=== PATIENT | male | born 1950 | race Caucasian/White ===

== ENCOUNTER 2020-03-05 12:10 | IRF | payer BC, MEDICARE, SELFPAY ==
--- NOTE | 2020-03-05 12:40 | ADMGEN ---
This patient, Bucky Forte, was admitted to [facility] Room 225-01. Patient/family oriented to hospital policies and general routines including ID bracelet, bed and alarms, visiting hours, pain management, procedures, bathroom and other care routines, personal items, smoking policy, room service/diet, and visiting hours. Information on how to activate the Rapid Response Team has been discussed. Patient/Family are encouraged to report perceived risks to care and to ask questions if they do not understand what they are told or what they should do.
[2020-03-05 12:41] VITALS: BP 135/74; PULSE 89; RESP 20; TEMP 36.6; O2SAT 98
[2020-03-05 12:42] VITALS: BMI 40.6
[2020-03-05 12:44] VITALS: BMI 40.6
--- NOTE | 2020-03-05 13:49 | WPDREHABHP ---
H&P: HPI History of Present Illness Date/Time: 03/05/20 13:49 Chief complaint: T10-L1 PSF,wound dehis Narrative: Bucky Forte is a 69 year old male HISTORY OF PRESENT ILLNESS: The patient's primary rehab impairment category is orthopedic/other The etiologic diagnosis is T11-T12 fracture I saw this patient [id number] on on March 05, 2020 at 1:00 p.m. The patient is a 69 years old right-handed male with a past medical history of diabetes mellitus type 2, hypertension, and factor 5 leiden who recently presented after a fall with a T11 and T12 fracture, status post T10-L1 PSF by Dr. Garcia on December 17, 2019. The patient is on Coumadin at home. He had a mechanical fall and hit his back leading to superficial dehiscence along the midportion of the incision, he presented to [facility] on February 26, 2020 and was transferred to [facility] the same day for evaluation by his neurosurgeon. Drainage was noted to the incision. Neurosurgery examined patient and with no new recommendation. Wound Care was consulted and clean the wound and prevena wound VAC was applied. The patient has experienced acute blood-loss anemia, acute posttraumatic pain, and decreased mobility,. He will require monitoring of labs, wound care management, physical and occupational therapy. The patient will continue on Coumadin as he has for the past 15 years.COVID: The patient has not traveled outside the [place] or head contact with someone who is ill status travel outside the [place] in the past 21 days. The patient has not traveled to an area of the [place] that is experiencing known transmission of the Coronavirus and has not had closed personal contact with anyone that has. Patient does not have a fever patient is not experiencing lower respiratory illness symptoms. Therapy was initiated at the acute care facility and the patient transferred to us from [facility] on March 05, 2020 FALLS OR SURGERIES: The patient has had ] major surgeries in the 100 days prior to admission.( T10 -L1 PSF by Dr. gutierrez on December 17, 2019. The patient has had 2 or more falls with injury in the past 6 months. PAST MEDICAL HISTORY: Close fracture T12, closed fracture T11, diabetes mellitus, factor 5 Leiden mutation, and hypertension. PAST SURGICAL HISTORY: Upper endoscopy., IVC filter placement., Lumbar spine fusion. SOCIAL HISTORY: The patient lives independently in a 3 story home with 11 is stairs in between each level, there are rales on both sides. Following the patient's recent surgery he has been staying at a [facility] in [place], [place]. he is able to return there following rehab if necessary but prefers to return to his own home. 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 He was able to perform ADLs independently previously. He does not have support in his own home following rehabilitation and would like to be completely independent so that he may return home. The patient reported that he completed rehab at [facility] after his spinal surgery. He stated that while in rehab he was able to do stairs without the LLE weakness causing a problem, but will need home after rehab he began to have difficulty once again. He feels that if he works on 11 stairs, rest, 11 is stairs, rest, and 11 is stairs and rest consistently throughout rehab he will be able to ascertain if it is the number of his stairs causing the problem or if he just did not fully get all of his strength back the patient was never a smoker never a drinker never drug abuser. FAMILY HISTORY: None on file PRIOR LEVEL OF FUNCTION: Eating was [INDEPENDENT] Oral Care was [INDEPENDENT] Toileting Hygiene was [INDEPENDENT] Shower/Bathing was [INDEPENDENT] Upper Body Dressing was [INDEPENDENT] Lower Body Dressing was [INDEPENDENT] D
[2020-03-05 14:00] VITALS: BP 108/63; PULSE 79; RESP 20; TEMP 36.6; O2SAT 100
[2020-03-05 14:57] LABS: Prothrombin Time 23.2 Seconds (11.1-14.7)
[2020-03-05] MEDS: CYCLOBENZAPRINE HCL 5 MG TABLET PO ×2 (16:23→23:01)
[2020-03-05] MEDS: WARFARIN (*PBKC) 10 MG TABLET PO (16:23)
[2020-03-05 22:30] VITALS: BP 140/65; PULSE 83; RESP 20; TEMP 36.8; O2SAT 96
[2020-03-05] MEDS: SIMVASTATIN 20 MG TABLET PO (22:33)
[2020-03-05] MEDS: RANOLAZINE 500 MG TAB.ER.12H PO (22:33)
[2020-03-05] MEDS: PANTOPRAZOLE 40 MG TABLET PO (22:33)
[2020-03-05] MEDS: PREGABALIN (*CRX) 75 MG CAPSULE 150 MG PO (22:35)
[2020-03-06 04:53] LABS: Basophils Percent Auto 0.2 % (0.2-1.2); Eosinophils Absolute Auto 0.2 K/mm3 (0-0.3); Eosinophils Percent Auto 3.3 % (0-4.4); Hematocrit 31.6 % (42.0-52.0); Hemoglobin 9.8 g/dL (14.0-18.0); Immature Granulocyte Absolute 0.02 K/mm3 (0.00-0.031); Immature Granulocyte Percent A 0.4 % (0-0.5); Lymphocytes Absolute Auto 1.47 K/mm3 (0.9-3.2); Lymphocytes Percent Auto 28.1 % (18.3-44.2); Mean Corpuscular Hemoglobin 26.8 pg (26-34); Mean Corpuscular Volume 86.3 fl (80-100); Monocytes Absolute Auto 0.4 K/mm3 (0.1-0.6); Monocytes Percent Auto 7.8 % (2.6-8.5); Neutrophils Absolute Auto 3.2 K/mm3 (1.3-6.7); Neutrophils Percent Auto 60.2 % (45.5-73.1); Platelet Count Result 271 k/mm3 (150-375); Red Blood Count 3.66 M/mm3 (4.6-6.20); White Blood Count 5.2 K/mm3 (4.5-10.0)
[2020-03-06 05:06] LABS: Prothrombin Time 23.1 Seconds (11.1-14.7)
[2020-03-06 05:09] LABS: Anion Gap 5 mmol/L (8-16); Blood Urea Nitrogen 22 mg/dL (9-20); Calcium 8.9 mg/dL (8.4-10.2); Carbon Dioxide 28 mmol/L (22-30); Chloride 107 mmol/L (98-107); Estimated CRCL calculation 74 ml/min; Estimated Glomerular Filt Rate > 60; Glucose 95 mg/dL (75-110); Potassium 4.4 mmol/L (3.4-5.0); Sodium 140 mmol/L (137-145)
[2020-03-06 06:05] VITALS: BP 111/60; PULSE 72; RESP 20; TEMP 36.1; O2SAT 100
[2020-03-06] MEDS: CYCLOBENZAPRINE HCL 5 MG TABLET PO ×3 (06:08→22:14)
[2020-03-06] MEDS: RANOLAZINE 500 MG TAB.ER.12H PO ×2 (09:03→21:01)
[2020-03-06] MEDS: COLCHICINE 0.6 MG TABLET PO (09:03)
[2020-03-06] MEDS: polyethylene glycoL 3350 17 GM POWD.PACK PO (09:03)
[2020-03-06] MEDS: ASPIRIN 81 MG CHEWABLE TABLET PO (09:03)
[2020-03-06] MEDS: PANTOPRAZOLE 40 MG TABLET PO ×2 (09:03→21:00)
[2020-03-06] MEDS: PREGABALIN (*CRX) 75 MG CAPSULE 150 MG PO ×2 (09:05→21:00)
--- NOTE | 2020-03-06 12:22 | WPDNEUROPN ---
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 Status: Acute (3) Factor 5 Leiden mutation, heterozygous: Code(s): D68.51 - Activated protein C resistance Status: Acute (4) Hypertension: Code(s): I10 - Essential (primary) hypertension Status: Acute (5) Wound dehiscence: Code(s): T81.30XA - Disruption of wound, unspecified, initial encounter Status: Acute (6) Other fracture of t11-T12 vertebra, sequela: Code(s): S22.088S - Other fracture of T11-T12 vertebra, sequela Status: Acute Additional Plan stable continue the treatment as such Review of Systems Review of Systems: All systems reviewed & are unremarkable except as noted in HPI and below Exam Narrative: Exam Narrative: awake alert cooperative has no specific complaints in no obvious distress his speech nor dysphasic not dysarthric heart regular lungs clear abdomen is soft protuberant neuro examination unchanged Objective Data Vital Signs Vital Signs: Vital Signs - 24 hr 03/05/20 12:41 03/05/20 14:00 03/05/20 22:30 Temperature 36.6 C 36.6 C 36.8 C Pulse Rate 89 79 83 Respiratory Rate 20 20 20 Blood Pressure 135/74 108/63 140/65 Pulse Oximetry 98 100 96 03/06/20 06:05 Temperature 36.1 C L Pulse Rate 72 Respiratory Rate 20 Blood Pressure 111/60 Pulse Oximetry 100 Intake/Output Intake/Output: Intake & Output 03/03/20 03/04/20 03/05/20 03/06/20 23:59 23:59 23:59 23:59 Intake Total 240 240 Balance 240 240 Meds/Results Medications: Active Medications Generic Name Dose Route Start Last Admin Trade Name Freq PRN Reason Stop Dose Admin Acetaminophen 650 mg 03/05/20 13:22 Acetaminophen 325 Mg Tablet PO Q4H PRN Headache Aspirin 81 mg 03/06/20 09:00 03/06/20 09:03 Aspirin 81 Mg Chewable Tablet PO 81 mg DAILY RENU Administration Bupropion HCl 150 mg 03/05/20 21:00 03/06/20 09:03 Bupropion Hcl Sr (12hr) 150 Mg Tab PO 150 mg Q12HR RENU Administration Colchicine 0.6 mg 03/06/20 09:00 03/06/20 09:03 Colchicine 0.6 Mg Tablet PO 0.6 mg DAILY RENU Administration Cyclobenzaprine HCl 5 mg 03/05/20 14:00 03/06/20 06:08 Cyclobenzaprine Hcl 5 Mg Tablet PO 5 mg Q8H RENU Administration Diphenoxylate HCl/Atropine 1 tablet 03/05/20 13:22 Diphenoxylate/Atropine (*Crx) 2.5 Mg Tablet PO QID PRN Diarrhea Pantoprazole Sodium 40 mg 03/05/20 21:00 03/06/20 09:03 Pantoprazole 40 Mg Tablet PO 40 mg Q12H RENU Administration Polyethylene Glycol 17 gm 03/06/20 09:00 03/06/20 09:03 Polyethylene Glycol 3350 17 Gm Powd.Pack PO 17 gm DAILY RENU Administration Pregabalin 150 mg 03/05/20 21:00 03/06/20 09:05 Pregabalin (*Crx) 75 Mg Capsule PO 150 mg Q12H RENU Administration Ranolazine 500 mg 03/05/20 21:00 03/06/20 09:03 Ranolazine 500 Mg Tab.Er.12h PO 500 mg Q12H RENU Administration Simvastatin 20 mg 03/05/20 21:00 03/05/20 22:33 Simvastatin 20 Mg Tablet PO 20 mg HS RENU Administration Warfarin Sodium 10 mg 03/05/20 17:00 03/05/20 16:23 Warfarin (*Pbkc) 10 Mg Tablet PO 10 mg DAILY@1700 RENU Administration Labs Labs: Laboratory Results - last 24 hr 03/05/20 03/06/20 03/06/20 14:25 04:24 04:24 WBC 5.2 RBC 3.66 L Hgb 9.8 L Hct 31.6 L MCV 86.3 MCH 26.8 MCHC 31.0 L RDW 15.0 H Plt Count 271 MPV 9.0 Immature Gran % (Auto) 0.4 Neut % (Auto) 60.2 Lymph % (Auto) 28.1 [place] % (Auto) 7.8 Eos % (Auto) 3.3 Baso % (Auto) 0.2 Lymph # (Auto) 1.47 [place] # (Auto) 0.4 Eos # (Auto) 0.2 Baso # (Auto) 0.0 Abs Immat Gran (auto) 0.02 Absolute Neuts (auto) 3.2 Absolute Nucleated RBC 0.0
[2020-03-06 14:00] VITALS: BP 101/57; PULSE 85; RESP 22; TEMP 36.5; O2SAT 100
[2020-03-06] MEDS: WARFARIN (*PBKC) 10 MG TABLET PO (18:22)
[2020-03-06 19:43] VITALS: BP 115/56; PULSE 89; RESP 20; TEMP 36.5; O2SAT 100
[2020-03-06] MEDS: SIMVASTATIN 20 MG TABLET PO (21:01)
[2020-03-07 06:00] VITALS: BP 111/64; PULSE 86; RESP 20; TEMP 35.9; O2SAT 100
[2020-03-07] MEDS: CYCLOBENZAPRINE HCL 5 MG TABLET PO ×3 (06:06→21:20)
[2020-03-07] MEDS: PANTOPRAZOLE 40 MG TABLET PO ×2 (09:05→21:19)
[2020-03-07] MEDS: COLCHICINE 0.6 MG TABLET PO (09:05)
[2020-03-07] MEDS: polyethylene glycoL 3350 17 GM POWD.PACK PO (09:05)
[2020-03-07] MEDS: RANOLAZINE 500 MG TAB.ER.12H PO ×2 (09:06→21:19)
[2020-03-07] MEDS: ASPIRIN 81 MG CHEWABLE TABLET PO (09:06)
[2020-03-07] MEDS: PREGABALIN (*CRX) 75 MG CAPSULE 150 MG PO ×2 (09:06→21:21)
[2020-03-07 14:00] VITALS: BP 109/60; PULSE 81; RESP 20; TEMP 36.1; O2SAT 100
[2020-03-07] MEDS: WARFARIN (*PBKC) 10 MG TABLET PO (17:25)
[2020-03-07 20:00] VITALS: PULSE 82; RESP 20; O2SAT 92
[2020-03-07] MEDS: SIMVASTATIN 20 MG TABLET PO (21:19)
[2020-03-07 22:00] VITALS: BP 133/70; PULSE 82; RESP 20; TEMP 36.2; O2SAT 92
[2020-03-08 05:55] VITALS: BP 125/72; PULSE 77; RESP 20; TEMP 36.6; O2SAT 99
[2020-03-08] MEDS: CYCLOBENZAPRINE HCL 5 MG TABLET PO ×3 (06:59→21:54)
--- NOTE | 2020-03-08 09:00 | RPD ---
INDIVIDUALIZED PLAN OF CARE FOR Bucky Forte Brief Synthesis of Pre-Admission Screen, Post-Admission Evaluation and Therapy Evaluations: The patient presents to rehab with T11-T12 fracture. Comorbidities include status post mechanical fall and wound dehiscence of a posterior spinal fusion surgical incision, diabetes mellitus, hypertension Factor V Leiden mutation, acute pain, and acute blood loss anemia. The complexity of the patient's medical management, nursing, and therapy needs require an inpatient rehab hospital stay with a physician-led interdisciplinary team approach. The patient?s needs will be best met in an intensive program vs. at a lower level of care. The patient requires physician services for medical oversight, management of surgical wound dehiscence in setting of present comorbidities, and pain management. The patient requires nursing services for anticoagulation therapy, diabetes training, DVT prophylactics, infection protection, medication management and education, pressure relief, and wound care. Deficits include:ADLs, Balance, Endurance, Family Training/Education, Mobility, Pain Management, ROM, Safety, Strength, and Transfers. Party Plan Demonstrator/Case Management for: Discharge Planning and Patient/Family Counseling Physical Therapy: 5 days per week for 90 minutes. Treatments may include: Therapeutic Exercise, Gait Training, Neuromuscular Re-education, Transfer Training, Community Reintegration, Bed Mobility, Patient/Family Education, Wheelchair Mobility Group Therapy/Concurrent Therapy Rationales: -Improve attention span during functional activities in a distracted environment. -Enhance problem solving and/or adequate judgment skills during functional activities in a distracted environment. -Promote increased safety awareness in a distracted environment to reduce fall risk with functional tasks, transfers, and ambulation to allow a more safe, self-sufficient return to the home environment. -Improve dynamic balance skills to promote safety and independence with functional activities in a distracted environment for maximum gain. Occupational Therapy: 5 days per week for 90 minutes. Treatments may include: Therapeutic Exercise, Therapeutic Activity, Cognitive Training, Self-Care Transfer Training, Community Reintegration, Home Management, Patient/Family Education, Wheelchair Mobility Training, Energy Conservation Training Group Therapy/Concurrent Therapy Rationales: -Allow therapist to observe and teach generalization and carry-over of skills learned in individual therapy. -Enhance problem solving and sequencing skills during therapeutic activities in a distracted environment. -Promote increased safety awareness in a realistic setting to reduce fall risk with functional tasks due to visual and verbal distractions. -Increase functional level with ADLs, ADL transfers and use of adaptive equipment through therapeutic activities with others while promoting safety to allow a more safe, self-sufficient return home. Medical Prognosis: Good Anticipated Length of Stay: 10 days Rehab Goals: Eating Goal: 06-Independent Oral Hygiene Goal: 06-Independent Toileting Hygiene Goal: 06-Independent Shower/Bathe Self Goal: 06-Independent Upper Body Dressing Goal: 06-Independent Lower Body Dressing Goal: 06-Independent Putting On/Taking Off Footwear Goal: 06-Independent Rolling Left and Right Goal: 06-Independent Sit to Lying Goal: 06-Independent Lying to Sitting on Side of Bed Goal: 06-Independent Sit to Stand Goal: 06-Independent Chair/Dyc-cl-Segtu Transfer Goal: 06-Independent Toilet Transfer Goal: 06-Independent Car Transfer Goal: 06-Independent Walk 10' Goal: 06-Independent Walk 50' with Two Turns Goal: 06-Independent Walk 150' Goal: 06-Independent Walk 10' on Uneven Surface Goal: 06-Independent 1 Step (Curb) Goal: 06-Independent 4 Steps Goal: 06-Independent 12 Steps Goal Score: 06-Independent Picking Up Object Goal: 06-Independent Wheel 50'
[2020-03-08] MEDS: PANTOPRAZOLE 40 MG TABLET PO ×2 (09:18→21:50)
[2020-03-08] MEDS: polyethylene glycoL 3350 17 GM POWD.PACK PO (09:18)
[2020-03-08] MEDS: COLCHICINE 0.6 MG TABLET PO (09:18)
[2020-03-08] MEDS: ASPIRIN 81 MG CHEWABLE TABLET PO (09:18)
[2020-03-08] MEDS: RANOLAZINE 500 MG TAB.ER.12H PO ×2 (09:19→21:53)
[2020-03-08] MEDS: PREGABALIN (*CRX) 75 MG CAPSULE 150 MG PO ×2 (09:22→21:53)
--- NOTE | 2020-03-08 10:53 | WPDNEUROPN ---
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 Status: Acute (3) Factor 5 Leiden mutation, heterozygous: Code(s): D68.51 - Activated protein C resistance Status: Acute (4) Hypertension: Code(s): I10 - Essential (primary) hypertension Status: Acute (5) Wound dehiscence: Code(s): T81.30XA - Disruption of wound, unspecified, initial encounter Status: Acute (6) Other fracture of t11-T12 vertebra, sequela: Code(s): S22.088S - Other fracture of T11-T12 vertebra, sequela Status: Acute Additional Plan stable continue the treatment as such Review of Systems Review of Systems: All systems reviewed & are unremarkable except as noted in HPI and below Exam Narrative: Exam Narrative: remains awake alert cooperative has no specific complaints continues on anticoagulation therapy heart regular lungs clear abdomen is soft neuro unchanged Objective Data Vital Signs Vital Signs: Vital Signs - 24 hr 03/07/20 14:00 03/07/20 20:00 03/07/20 22:00 Temperature 36.1 C L 36.2 C L Pulse Rate 81 82 82 Respiratory Rate 20 20 20 Blood Pressure 109/60 133/70 Pulse Oximetry 100 92 92 03/08/20 05:55 Temperature 36.6 C Pulse Rate 77 Respiratory Rate 20 Blood Pressure 125/72 Pulse Oximetry 99 Intake/Output Intake/Output: Intake & Output 03/05/20 03/06/20 03/07/20 03/08/20 23:59 23:59 23:59 23:59 Intake Total 249 157 3394 480 Balance 489 671 2487 480 Meds/Results Medications: Active Medications Generic Name Dose Route Start Last Admin Trade Name Freq PRN Reason Stop Dose Admin Acetaminophen 650 mg 03/05/20 13:22 Acetaminophen 325 Mg Tablet PO Q4H PRN Headache Aspirin 81 mg 03/06/20 09:00 03/08/20 09:18 Aspirin 81 Mg Chewable Tablet PO 81 mg DAILY RENU Administration Bupropion HCl 150 mg 03/05/20 21:00 03/08/20 09:18 Bupropion Hcl Sr (12hr) 150 Mg Tab PO 150 mg Q12HR RENU Administration Colchicine 0.6 mg 03/06/20 09:00 03/08/20 09:18 Colchicine 0.6 Mg Tablet PO 0.6 mg DAILY RENU Administration Cyclobenzaprine HCl 5 mg 03/05/20 14:00 03/08/20 06:59 Cyclobenzaprine Hcl 5 Mg Tablet PO 5 mg Q8H RENU Administration Diphenoxylate HCl/Atropine 1 tablet 03/05/20 13:22 Diphenoxylate/Atropine (*Crx) 2.5 Mg Tablet PO QID PRN Diarrhea Pantoprazole Sodium 40 mg 03/05/20 21:00 03/08/20 09:18 Pantoprazole 40 Mg Tablet PO 40 mg Q12H RENU Administration Polyethylene Glycol 17 gm 03/06/20 09:00 03/08/20 09:18 Polyethylene Glycol 3350 17 Gm Powd.Pack PO 17 gm DAILY RENU Administration Pregabalin 150 mg 03/05/20 21:00 03/08/20 09:22 Pregabalin (*Crx) 75 Mg Capsule PO 150 mg Q12H RENU Administration Ranolazine 500 mg 03/05/20 21:00 03/08/20 09:19 Ranolazine 500 Mg Tab.Er.12h PO 500 mg Q12H RENU Administration Simvastatin 20 mg 03/05/20 21:00 03/07/20 21:19 Simvastatin 20 Mg Tablet PO 20 mg HS RENU Administration Warfarin Sodium 10 mg 03/05/20 17:00 03/07/20 17:25 Warfarin (*Pbkc) 10 Mg Tablet PO 10 mg DAILY@1700 RENU Administration
[2020-03-08 11:57] LABS: INR 2.2; Prothrombin Time 24.6 Seconds (11.1-14.7)
[2020-03-08 13:19] VITALS: BMI 40.6
--- NOTE | 2020-03-08 13:32 | PCPTNOTE ---
Bucky Forte was evaluated for a wheeled walker on 03/08/2020 by this physical therapist. The wheeled walker will resolve patient's mobility limitations and will be used for ADL's within the home. The patient can safely use the wheeled walker. ?The wheeled walker will resolve the patient?s mobility deficits, including decreased balance, endurance and bilateral lower extremity strength.
[2020-03-08 14:00] VITALS: BP 126/74; PULSE 89; RESP 20; TEMP 36.3; O2SAT 100
[2020-03-08] MEDS: WARFARIN (*PBKC) 10 MG TABLET PO (17:26)
[2020-03-08] MEDS: SIMVASTATIN 20 MG TABLET PO (21:54)
[2020-03-08 22:00] VITALS: BP 104/68; PULSE 80; RESP 18; TEMP 36.2; O2SAT 98
[2020-03-09] MEDS: CYCLOBENZAPRINE HCL 5 MG TABLET PO ×3 (05:23→22:05)
[2020-03-09 05:30] VITALS: BP 113/64; PULSE 66; RESP 16; TEMP 36.4; O2SAT 100
--- NOTE | 2020-03-09 09:59 | WPDNEURORHBP ---
Subjective Date/time seen: 03/09/20 09:59 69 years old right-handed male with T11-T12 fracture in addition to the ongoing diagnosis of diabetes mellitus, hypertension, and factor 5 laden deficiency who has undergone surgery for the T11 and T12 fracture but at present also on Coumadin wound, dressing will be changed on , he will require occupational therapy as an outpatient along with the physical therapy and also bathing aide in addition to the follow-up appointment with the surgeon Review of Systems Review of Systems: All systems reviewed & are unremarkable except as noted in HPI and below Functional Status Ambulation Ability Ability to Ambulate 10 Feet: Minimum Assistance X 1 Ability to Ambulate 50 Feet With 2 Turns: Minimum Assistance X 1 Ambulation Assistive Devices: Walker, Wheeled Transfers Ability Ability to Transfer In/Out of Chair: Moderate Assistance X 1 Exam Narrative: Exam Narrative: on examination he is awake alert cooperative in no obvious acute distress his speech nor dysphasic no dysarthric nor dysphonic heart regular with no murmur lungs clear to auscultation no rhonchi or crepitation abdomen is soft neurological examination revealed him to have no change in her neurological findings Objective Data Vital Signs Vital Signs: Vital Signs - 24 hr 03/08/20 14:00 03/08/20 22:00 03/09/20 05:30 Temperature 36.3 C L 36.2 C L 36.4 C L Pulse Rate 89 80 66 Respiratory Rate 20 18 16 Blood Pressure 126/74 104/68 113/64 Pulse Oximetry 100 98 100 Intake/Output Intake/Output: Intake & Output 03/06/20 03/07/20 03/08/20 03/09/20 23:59 23:59 23:59 23:59 Intake Total 960 1680 1200 480 Balance 960 1680 1200 480 Meds/Results Medications: Active Medications Generic Name Dose Route Start Last Admin Trade Name Freq PRN Reason Stop Dose Admin Acetaminophen 650 mg 03/05/20 13:22 Acetaminophen 325 Mg Tablet PO Q4H PRN Headache Aspirin 81 mg 03/06/20 09:00 03/08/20 09:18 Aspirin 81 Mg Chewable Tablet PO 81 mg DAILY RENU Administration Bupropion HCl 150 mg 03/05/20 21:00 03/08/20 21:51 Bupropion Hcl Sr (12hr) 150 Mg Tab PO 150 mg Q12HR RENU Administration Colchicine 0.6 mg 03/06/20 09:00 03/08/20 09:18 Colchicine 0.6 Mg Tablet PO 0.6 mg DAILY RENU Administration Cyclobenzaprine HCl 5 mg 03/05/20 14:00 03/09/20 05:23 Cyclobenzaprine Hcl 5 Mg Tablet PO 5 mg Q8H RENU Administration Diphenoxylate HCl/Atropine 1 tablet 03/05/20 13:22 Diphenoxylate/Atropine (*Crx) 2.5 Mg Tablet PO QID PRN Diarrhea Pantoprazole Sodium 40 mg 03/05/20 21:00 03/08/20 21:50 Pantoprazole 40 Mg Tablet PO 40 mg Q12H RENU Administration Polyethylene Glycol 17 gm 03/06/20 09:00 03/08/20 09:18 Polyethylene Glycol 3350 17 Gm Powd.Pack PO 17 gm DAILY RENU Administration Pregabalin 150 mg 03/05/20 21:00 03/08/20 21:53 Pregabalin (*Crx) 75 Mg Capsule PO 150 mg Q12H RENU Administration Ranolazine 500 mg 03/05/20 21:00 03/08/20 21:53 Ranolazine 500 Mg Tab.Er.12h PO 500 mg Q12H RENU Administration Simvastatin 20 mg 03/05/20 21:00 03/08/20 21:54 Simvastatin 20 Mg Tablet PO 20 mg HS RENU Administration Warfarin Sodium 10 mg 03/05/20 17:00 03/08/20 17:26 Warfarin (*Pbkc) 10 Mg Tablet PO 10 mg DAILY@1700 RENU Administration Labs Labs: Laboratory Results - last 24 hr 03/08/20 11:23 PT 24.6 H INR 2.2 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
[2020-03-09 10:17] LABS: INR 2.3; Prothrombin Time 25.7 Seconds (11.1-14.7)
[2020-03-09] MEDS: COLCHICINE 0.6 MG TABLET PO (10:24)
[2020-03-09] MEDS: RANOLAZINE 500 MG TAB.ER.12H PO ×2 (10:24→20:49)
[2020-03-09] MEDS: PANTOPRAZOLE 40 MG TABLET PO ×2 (10:24→20:49)
[2020-03-09] MEDS: polyethylene glycoL 3350 17 GM POWD.PACK PO (10:24)
[2020-03-09] MEDS: PREGABALIN (*CRX) 75 MG CAPSULE 150 MG PO ×2 (10:24→20:49)
[2020-03-09] MEDS: ASPIRIN 81 MG CHEWABLE TABLET PO (10:24)
[2020-03-09 14:00] VITALS: BP 102/66; PULSE 83; RESP 18; TEMP 36.4; O2SAT 100
[2020-03-09] MEDS: WARFARIN (*PBKC) 4 MG TABLET 8 MG PO (18:10)
[2020-03-09 20:03] VITALS: BP 130/72; PULSE 78; RESP 20; TEMP 36.3; O2SAT 100
[2020-03-09] MEDS: SIMVASTATIN 20 MG TABLET PO (20:49)
[2020-03-10 05:33] LABS: INR 2.5; Prothrombin Time 27.4 Seconds (11.1-14.7)
[2020-03-10 05:44] VITALS: BP 135/78; PULSE 71; RESP 20; TEMP 35.8; O2SAT 95
[2020-03-10] MEDS: CYCLOBENZAPRINE HCL 5 MG TABLET PO ×3 (06:15→22:07)
[2020-03-10] MEDS: RANOLAZINE 500 MG TAB.ER.12H PO ×2 (08:26→20:21)
[2020-03-10] MEDS: COLCHICINE 0.6 MG TABLET PO (08:26)
[2020-03-10] MEDS: PANTOPRAZOLE 40 MG TABLET PO ×2 (08:27→20:20)
[2020-03-10] MEDS: PREGABALIN (*CRX) 75 MG CAPSULE 150 MG PO ×2 (08:27→20:21)
[2020-03-10] MEDS: ASPIRIN 81 MG CHEWABLE TABLET PO (08:27)
[2020-03-10 14:00] VITALS: BP 104/56; PULSE 80; RESP 20; TEMP 36.4; O2SAT 99
[2020-03-10] MEDS: WARFARIN (*PBKC) 3 MG TABLET 6 MG PO (17:20)
[2020-03-10 20:17] VITALS: BP 117/71; PULSE 84; RESP 20; TEMP 36.5; O2SAT 98
[2020-03-10] MEDS: SIMVASTATIN 20 MG TABLET PO (20:22)
[2020-03-11 05:26] LABS: INR 2.3; Prothrombin Time 25.5 Seconds (11.1-14.7)
[2020-03-11 05:50] VITALS: BP 108/56; PULSE 74; RESP 20; TEMP 36.5; O2SAT 100
[2020-03-11] MEDS: CYCLOBENZAPRINE HCL 5 MG TABLET PO ×3 (05:51→20:11)
[2020-03-11 08:00] VITALS: PULSE 74; RESP 20; O2SAT 100
[2020-03-11] MEDS: COLCHICINE 0.6 MG TABLET PO (09:39)
[2020-03-11] MEDS: ASPIRIN 81 MG CHEWABLE TABLET PO (09:39)
[2020-03-11] MEDS: PANTOPRAZOLE 40 MG TABLET PO ×2 (09:39→20:11)
[2020-03-11] MEDS: RANOLAZINE 500 MG TAB.ER.12H PO ×2 (09:40→20:11)
[2020-03-11] MEDS: polyethylene glycoL 3350 17 GM POWD.PACK PO (09:40)
[2020-03-11] MEDS: PREGABALIN (*CRX) 75 MG CAPSULE 150 MG PO ×2 (09:42→20:11)
[2020-03-11 14:00] VITALS: BP 114/66; PULSE 88; RESP 20; TEMP 36.8; O2SAT 100
[2020-03-11] MEDS: WARFARIN (*PBKC) 3 MG TABLET 6 MG PO (20:11)
[2020-03-11] MEDS: SIMVASTATIN 20 MG TABLET PO (20:11)
[2020-03-11] MEDS: ACETAMINOPHEN 325 MG TABLET 650 MG PO (20:12)
[2020-03-11 22:00] VITALS: BP 153/94; PULSE 70; RESP 20; TEMP 36.4; O2SAT 98
[2020-03-12 05:15] LABS: Prothrombin Time 23.1 Seconds (11.1-14.7)
[2020-03-12 06:00] VITALS: BP 118/65; PULSE 73; RESP 20; TEMP 36.6; O2SAT 100
[2020-03-12] MEDS: CYCLOBENZAPRINE HCL 5 MG TABLET PO ×3 (06:03→20:37)
[2020-03-12] MEDS: ASPIRIN 81 MG CHEWABLE TABLET PO (09:10)
[2020-03-12] MEDS: PANTOPRAZOLE 40 MG TABLET PO ×2 (09:11→20:39)
[2020-03-12] MEDS: PREGABALIN (*CRX) 75 MG CAPSULE 150 MG PO ×2 (09:11→20:37)
[2020-03-12] MEDS: COLCHICINE 0.6 MG TABLET PO (09:11)
[2020-03-12] MEDS: RANOLAZINE 500 MG TAB.ER.12H PO ×2 (09:12→20:38)
--- NOTE | 2020-03-12 10:25 | WPDNEURORHBP ---
Subjective Date/time seen: 03/12/20 10:25 69 years old right-handed male with T11 and T12 fracture in addition to the ongoing diagnosis of 1. Diabetes mellitus 2. Hypertension 3. Factor 5 laden deficiency and 4. Chronic anticoagulation therapy, his dressing will be changed on and also he will require occupational therapy as an outpatient along with physical therapy and bathing aide and follow-up appointment with the surgeon his INR is 2.0 yesterday he received Coumadin 6 mg we will increase to7mg today Review of Systems Review of Systems: All systems reviewed & are unremarkable except as noted in HPI and below Functional Status Ambulation Ability Ability to Ambulate 10 Feet: Standby Assistance Ability to Ambulate 50 Feet With 2 Turns: Contact Guard Ambulation Assistive Devices: Walker, Wheeled Transfers Ability Ability to Transfer In/Out of Chair: Standby Assistance Exam Narrative: Exam Narrative: examination revealed him to be awake alert cooperative in no obvious acute distress, speech nor dysphasic not dysarthric, neck supple, heart regular, lungs clear with no rhonchi or crepitation, abdomen soft nontender, neuro examination unchanged Objective Data Vital Signs Vital Signs: Vital Signs - 24 hr 03/11/20 14:00 03/11/20 22:00 03/12/20 06:00 Temperature 36.8 C 36.4 C L 36.6 C Pulse Rate 88 70 73 Respiratory Rate 20 20 20 Blood Pressure 114/66 153/94 H 118/65 Pulse Oximetry 100 98 100 Intake/Output Intake/Output: Intake & Output 03/09/20 03/10/20 03/11/20 03/12/20 23:59 23:59 23:59 23:59 Intake Total 1200 1560 720 240 Balance 1200 1560 720 240 Meds/Results Medications: Active Medications Generic Name Dose Route Start Last Admin Trade Name Freq PRN Reason Stop Dose Admin Acetaminophen 650 mg 03/05/20 13:22 03/11/20 20:12 Acetaminophen 325 Mg Tablet PO 650 mg Q4H PRN Administration Headache Aspirin 81 mg 03/06/20 09:00 03/12/20 09:10 Aspirin 81 Mg Chewable Tablet PO 81 mg DAILY RENU Administration Bupropion HCl 150 mg 03/05/20 21:00 03/12/20 09:11 Bupropion Hcl Sr (12hr) 150 Mg Tab PO 150 mg Q12HR RENU Administration Colchicine 0.6 mg 03/06/20 09:00 03/12/20 09:11 Colchicine 0.6 Mg Tablet PO 0.6 mg DAILY RENU Administration Cyclobenzaprine HCl 5 mg 03/05/20 14:00 03/12/20 06:03 Cyclobenzaprine Hcl 5 Mg Tablet PO 5 mg Q8H RENU Administration Diphenoxylate HCl/Atropine 1 tablet 03/05/20 13:22 Diphenoxylate/Atropine (*Crx) 2.5 Mg Tablet PO QID PRN Diarrhea Pantoprazole Sodium 40 mg 03/05/20 21:00 03/12/20 09:11 Pantoprazole 40 Mg Tablet PO 40 mg Q12H RENU Administration Polyethylene Glycol 17 gm 03/06/20 09:00 03/12/20 09:11 Polyethylene Glycol 3350 17 Gm Powd.Pack PO Not Given DAILY [facility] Pregabalin 150 mg 03/05/20 21:00 03/12/20 09:11 Pregabalin (*Crx) 75 Mg Capsule PO 150 mg Q12H RENU Administration Ranolazine 500 mg 03/05/20 21:00 03/12/20 09:12 Ranolazine 500 Mg Tab.Er.12h PO 500 mg Q12H RENU Administration Simvastatin 20 mg 03/05/20 21:00 03/11/20 20:11 Simvastatin 20 Mg Tablet PO 20 mg HS RENU Administration Warfarin Sodium 6 mg 03/10/20 17:00 03/11/20 20:11 Warfarin (*Pbkc) 3 Mg Tablet PO 6 mg DAILY@1700 RENU Administration Labs Labs: Laboratory Results - last 24 hr 03/12/20 04:36 PT 23.1 H INR 2.0 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
--- NOTE | 2020-03-12 10:36 | WPDNEURORHBP ---
Subjective Date/time seen: 03/12/20 10:36 XT 9 years old right-handed male with T11 and T12 fracture in addition to the ongoing diagnosis of 1. Diabetes mellitus 2. Hypertension 3. Factor 5 laden deficiency 4. Chronic anticoagulation therapy his dressing will be changed on 10 and he will require occupational therapy as an outpatient along with the physical therapy and bathing aide he has most recent INR is 2.0 his anticoagulation therapy will be adjusted accordingly that his Coumadin will be increased to7mg today Review of Systems Review of Systems: All systems reviewed & are unremarkable except as noted in HPI and below Functional Status Ambulation Ability Ability to Ambulate 10 Feet: Standby Assistance Ability to Ambulate 50 Feet With 2 Turns: Contact Guard Ambulation Assistive Devices: Walker, Wheeled Transfers Ability Ability to Transfer In/Out of Chair: Standby Assistance Exam Narrative: Exam Narrative: examination today he is awake alert cooperative in no obvious acute distress, speech nor dysphasic no dysarthric not dysphonic, neck is supple with no restriction of the range of motion, heart regular with no murmur, lungs clear with no rhonchi or crepitation, abdomen is soft nontender normal bowel sounds, and neurological examination is unchanged Objective Data Vital Signs Vital Signs: Vital Signs - 24 hr 03/11/20 14:00 03/11/20 22:00 03/12/20 06:00 Temperature 36.8 C 36.4 C L 36.6 C Pulse Rate 88 70 73 Respiratory Rate 20 20 20 Blood Pressure 114/66 153/94 H 118/65 Pulse Oximetry 100 98 100 Intake/Output Intake/Output: Intake & Output 03/09/20 03/10/20 03/11/20 03/12/20 23:59 23:59 23:59 23:59 Intake Total 1200 1560 720 240 Balance 1200 1560 720 240 Meds/Results Medications: Active Medications Generic Name Dose Route Start Last Admin Trade Name Freq PRN Reason Stop Dose Admin Acetaminophen 650 mg 03/05/20 13:22 03/11/20 20:12 Acetaminophen 325 Mg Tablet PO 650 mg Q4H PRN Administration Headache Aspirin 81 mg 03/06/20 09:00 03/12/20 09:10 Aspirin 81 Mg Chewable Tablet PO 81 mg DAILY RENU Administration Bupropion HCl 150 mg 03/05/20 21:00 03/12/20 09:11 Bupropion Hcl Sr (12hr) 150 Mg Tab PO 150 mg Q12HR RENU Administration Colchicine 0.6 mg 03/06/20 09:00 03/12/20 09:11 Colchicine 0.6 Mg Tablet PO 0.6 mg DAILY RENU Administration Cyclobenzaprine HCl 5 mg 03/05/20 14:00 03/12/20 06:03 Cyclobenzaprine Hcl 5 Mg Tablet PO 5 mg Q8H RENU Administration Diphenoxylate HCl/Atropine 1 tablet 03/05/20 13:22 Diphenoxylate/Atropine (*Crx) 2.5 Mg Tablet PO QID PRN Diarrhea Pantoprazole Sodium 40 mg 03/05/20 21:00 03/12/20 09:11 Pantoprazole 40 Mg Tablet PO 40 mg Q12H RENU Administration Polyethylene Glycol 17 gm 03/06/20 09:00 03/12/20 09:11 Polyethylene Glycol 3350 17 Gm Powd.Pack PO Not Given DAILY [facility] Pregabalin 150 mg 03/05/20 21:00 03/12/20 09:11 Pregabalin (*Crx) 75 Mg Capsule PO 150 mg Q12H RENU Administration Ranolazine 500 mg 03/05/20 21:00 03/12/20 09:12 Ranolazine 500 Mg Tab.Er.12h PO 500 mg Q12H RENU Administration Simvastatin 20 mg 03/05/20 21:00 03/11/20 20:11 Simvastatin 20 Mg Tablet PO 20 mg HS RENU Administration Warfarin Sodium 6 mg 03/10/20 17:00 03/11/20 20:11 Warfarin (*Pbkc) 3 Mg Tablet PO 6 mg DAILY@1700 RENU Administration Labs Labs: Laboratory Results - last 24 hr 03/12/20 04:36 PT 23.1 H INR 2.0 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
[2020-03-12 14:00] VITALS: BP 114/63; PULSE 76; RESP 20; TEMP 36.5; O2SAT 100
[2020-03-12] MEDS: WARFARIN (*PBKC) 3 MG TABLET 6 MG PO (17:42)
[2020-03-12 21:05] VITALS: BP 116/58; PULSE 83; RESP 20; TEMP 36.3; O2SAT 100
[2020-03-12] MEDS: SIMVASTATIN 20 MG TABLET PO (23:11)
[2020-03-13 05:29] VITALS: BP 107/66; PULSE 74; RESP 18; TEMP 36.4; O2SAT 100
[2020-03-13 05:30] LABS: Basophils Percent Auto 0.4 % (0.2-1.2); Eosinophils Absolute Auto 0.2 K/mm3 (0-0.3); Eosinophils Percent Auto 3.2 % (0-4.4); Hemoglobin 10.9 g/dL (14.0-18.0); Immature Granulocyte Absolute 0.01 K/mm3 (0.00-0.031); Immature Granulocyte Percent A 0.2 % (0-0.5); Lymphocytes Absolute Auto 1.75 K/mm3 (0.9-3.2); Lymphocytes Percent Auto 35.1 % (18.3-44.2); Mean Corpuscular HGB Conc 31.1 g/dl (32-36); Mean Corpuscular Hemoglobin 27.5 pg (26-34); Mean Corpuscular Volume 88.4 fl (80-100); Mean Platelet Volume 9.2 fl (7.4-10.4); Monocytes Absolute Auto 0.5 K/mm3 (0.1-0.6); Monocytes Percent Auto 9.6 % (2.6-8.5); Neutrophils Absolute Auto 2.6 K/mm3 (1.3-6.7); Neutrophils Percent Auto 51.5 % (45.5-73.1); Platelet Count Result 366 k/mm3 (150-375); Red Blood Count 3.96 M/mm3 (4.6-6.20)
[2020-03-13 05:43] LABS: INR 1.8; Prothrombin Time 21.5 Seconds (11.1-14.7)
[2020-03-13 06:11] LABS: Anion Gap 5 mmol/L (8-16); Blood Urea Nitrogen 17 mg/dL (9-20); Carbon Dioxide 30 mmol/L (22-30); Chloride 108 mmol/L (98-107); Estimated CRCL calculation 74 ml/min; Estimated Glomerular Filt Rate > 60; Glucose 93 mg/dL (75-110); Potassium 4.3 mmol/L (3.4-5.0); Sodium 143 mmol/L (137-145)
[2020-03-13] MEDS: CYCLOBENZAPRINE HCL 5 MG TABLET PO ×3 (06:35→20:08)
[2020-03-13] MEDS: ASPIRIN 81 MG CHEWABLE TABLET PO (09:41)
[2020-03-13] MEDS: PANTOPRAZOLE 40 MG TABLET PO ×2 (09:41→20:07)
[2020-03-13] MEDS: COLCHICINE 0.6 MG TABLET PO (09:41)
[2020-03-13] MEDS: RANOLAZINE 500 MG TAB.ER.12H PO ×2 (09:42→20:07)
[2020-03-13] MEDS: PREGABALIN (*CRX) 75 MG CAPSULE 150 MG PO ×2 (09:45→20:07)
--- NOTE | 2020-03-13 11:48 | WPDNEURORHBP ---
Subjective Date/time seen: 03/13/20 11:48 69 years old has been admitted to the hospital for T11-T12 fracture in addition to ongoing history of 1. Diabetes mellitus 2. Hypertension 3. Factor 5 laden deficiency number mechanical fall with superficial dehiscence of the midportion of the incision for which he was taken care by the neurosurgeons his routine labs revealed mild anemia with hemoglobin of 10.9 and chloride of 108. INR is being monitored and adjusted accordingly Review of Systems Review of Systems: All systems reviewed & are unremarkable except as noted in HPI and below Functional Status Ambulation Ability Ability to Ambulate 10 Feet: Standby Assistance Ability to Ambulate 50 Feet With 2 Turns: Standby Assistance Ambulation Assistive Devices: Walker, Wheeled Transfers Ability Ability to Transfer In/Out of Chair: Standby Assistance Exam Narrative: Exam Narrative: on examination he is awake alert cooperative in no distress. His speech nor dysphasic not dysarthric nor dysphonic. Heart regular with no murmur. Lungs clear with no rhonchi or crepitations. Abdomen distended normal bowel sounds nontender. Neuro examination is unchanged his pupils are round regular. Extraocular movements are full. Facial sensation intact. Face symmetrical. Tongue in the oral cavity and midline protrusion. No fasciculation. And motor examination reveals him to be fairly normal with no drift against the gravity. Also no specific complaints of pain Objective Data Vital Signs Vital Signs: Vital Signs - 24 hr 03/12/20 14:00 03/12/20 21:05 03/13/20 05:29 Temperature 36.5 C 36.3 C L 36.4 C Pulse Rate 76 83 74 Respiratory Rate 20 20 18 Blood Pressure 114/63 116/58 L 107/66 Pulse Oximetry 100 100 100 Intake/Output Intake/Output: Intake & Output 03/10/20 03/11/20 03/12/20 03/13/20 23:59 23:59 23:59 23:59 Intake Total 1560 720 720 240 Balance 1560 720 720 240 Meds/Results Medications: Active Medications Generic Name Dose Route Start Last Admin Trade Name Freq PRN Reason Stop Dose Admin Acetaminophen 650 mg 03/05/20 13:22 03/11/20 20:12 Acetaminophen 325 Mg Tablet PO 650 mg Q4H PRN Administration Headache Aspirin 81 mg 03/06/20 09:00 03/13/20 09:41 Aspirin 81 Mg Chewable Tablet PO 81 mg DAILY RENU Administration Bupropion HCl 150 mg 03/05/20 21:00 03/13/20 09:41 Bupropion Hcl Sr (12hr) 150 Mg Tab PO 150 mg Q12HR RENU Administration Colchicine 0.6 mg 03/06/20 09:00 03/13/20 09:41 Colchicine 0.6 Mg Tablet PO 0.6 mg DAILY RENU Administration Cyclobenzaprine HCl 5 mg 03/05/20 14:00 03/13/20 06:35 Cyclobenzaprine Hcl 5 Mg Tablet PO 5 mg Q8H RENU Administration Diphenoxylate HCl/Atropine 1 tablet 03/05/20 13:22 Diphenoxylate/Atropine (*Crx) 2.5 Mg Tablet PO QID PRN Diarrhea Pantoprazole Sodium 40 mg 03/05/20 21:00 03/13/20 09:41 Pantoprazole 40 Mg Tablet PO 40 mg Q12H RENU Administration Polyethylene Glycol 17 gm 03/06/20 09:00 03/13/20 09:46 Polyethylene Glycol 3350 17 Gm Powd.Pack PO Not Given DAILY [facility] Pregabalin 150 mg 03/05/20 21:00 03/13/20 09:45 Pregabalin (*Crx) 75 Mg Capsule PO 150 mg Q12H [facility] Administration Ranolazine 500 mg 03/05/20 21:00 03/13/20 09:42 Ranolazine 500 Mg Tab.Er.12h PO 500 mg Q12H RENU Administration Simvastatin 20 mg 03/05/20 21:00 03/12/20 23:11 Simvastatin 20 Mg Tablet PO 20 mg HS RENU Administration Warfarin Sodium 3 mg 03/13/20 17:00 Warfarin (*Pbkc) 3 Mg Tablet PO DAILY@1700 [facility] Warfarin Sodium 4 mg 03/13/20 17:00 Warfarin (*Pbkc) 4 Mg Tablet PO DAILY@1700 [facility] Labs Labs: Laboratory Results - last 24 hr 03/13/20 03/13/20 03/13/20 04:43 04:43 04:43 WBC 5.0 RBC 3.96 L Hgb 10.9 L Hct 35.0 L MCV 88.4 MCH 27.5 MCHC 31.1 L RDW 15.0 H Plt Count 366 MPV 9.2 Immature Gran % (Auto) 0.2 Neut % (A
[2020-03-13 14:00] VITALS: BP 100/57; PULSE 81; RESP 20; TEMP 36.4; O2SAT 100
[2020-03-13] MEDS: WARFARIN (*PBKC) 4 MG TABLET PO (16:49)
[2020-03-13] MEDS: WARFARIN (*PBKC) 3 MG TABLET PO (16:49)
[2020-03-13] MEDS: SIMVASTATIN 20 MG TABLET PO (20:08)
[2020-03-13 22:00] VITALS: BP 113/67; PULSE 94; RESP 18; TEMP 36.6; O2SAT 99
[2020-03-14 05:59] LABS: INR 2.1; Prothrombin Time 24.3 Seconds (11.1-14.7)
[2020-03-14 06:00] VITALS: BP 113/65; PULSE 72; RESP 18; TEMP 36.4; O2SAT 100
[2020-03-14] MEDS: CYCLOBENZAPRINE HCL 5 MG TABLET PO ×3 (06:59→21:07)
[2020-03-14] MEDS: ASPIRIN 81 MG CHEWABLE TABLET PO (07:53)
[2020-03-14] MEDS: PANTOPRAZOLE 40 MG TABLET PO ×2 (07:54→20:16)
[2020-03-14] MEDS: COLCHICINE 0.6 MG TABLET PO (07:54)
[2020-03-14] MEDS: RANOLAZINE 500 MG TAB.ER.12H PO ×2 (07:54→20:17)
[2020-03-14] MEDS: PREGABALIN (*CRX) 75 MG CAPSULE 150 MG PO ×2 (09:30→20:16)
[2020-03-14 14:00] VITALS: BP 106/67; PULSE 91; RESP 20; TEMP 36.1; O2SAT 99
[2020-03-14] MEDS: WARFARIN (*PBKC) 4 MG TABLET PO (17:39)
[2020-03-14] MEDS: WARFARIN (*PBKC) 3 MG TABLET PO (17:40)
[2020-03-14] MEDS: SIMVASTATIN 20 MG TABLET PO (20:17)
[2020-03-14 21:37] VITALS: BP 130/72; PULSE 82; RESP 14; TEMP 35.9; O2SAT 96
[2020-03-15 04:57] LABS: INR 2.1; Prothrombin Time 23.8 Seconds (11.1-14.7)
[2020-03-15] MEDS: CYCLOBENZAPRINE HCL 5 MG TABLET PO (05:28)
[2020-03-15 05:32] VITALS: BP 126/75; PULSE 77; RESP 18; TEMP 36; O2SAT 99
[2020-03-15] MEDS: ASPIRIN 81 MG CHEWABLE TABLET PO (09:05)
[2020-03-15] MEDS: COLCHICINE 0.6 MG TABLET PO (09:05)
[2020-03-15] MEDS: RANOLAZINE 500 MG TAB.ER.12H PO (09:06)
[2020-03-15] MEDS: PANTOPRAZOLE 40 MG TABLET PO (09:06)
[2020-03-15] MEDS: PREGABALIN (*CRX) 75 MG CAPSULE 150 MG PO (09:07)
--- NOTE | 2020-03-15 09:58 | WPDNEURORHBP ---
Subjective Date/time seen: 03/15/20 09:58 69 years old with T11 and T12 fracture in addition to ongoing diagnosis of diabetes mellitus hypertension factor 5 laden deficiency with history of mechanical fall and dehiscence of the wound has been involved in a physical therapy and occupational therapy has no specific complaints Review of Systems Review of Systems: All systems reviewed & are unremarkable except as noted in HPI and below Functional Status Ambulation Ability Ability to Ambulate 10 Feet: Standby Assistance Ability to Ambulate 50 Feet With 2 Turns: Contact Guard Ambulation Assistive Devices: Walker, Wheeled Transfers Ability Ability to Transfer In/Out of Chair: Standby Assistance Exam Narrative: Exam Narrative: awake alert cooperative in no obvious acute distress his speech nor dysphasic no dysarthric not dysphonic heart regular lungs clear abdomen is soft and neuro unchanged Objective Data Vital Signs Vital Signs: Vital Signs - 24 hr 03/14/20 14:00 03/14/20 21:37 03/15/20 05:32 Temperature 36.1 C L 35.9 C L 36.0 C L Pulse Rate 91 82 77 Respiratory Rate 20 14 18 Blood Pressure 106/67 130/72 126/75 Pulse Oximetry 99 96 99 Intake/Output Intake/Output: Intake & Output 03/12/20 03/13/20 03/14/20 03/15/20 23:59 23:59 23:59 23:59 Intake Total 720 1440 960 240 Balance 720 1440 960 240 Meds/Results Medications: Active Medications Generic Name Dose Route Start Last Admin Trade Name Freq PRN Reason Stop Dose Admin Acetaminophen 650 mg 03/05/20 13:22 03/11/20 20:12 Acetaminophen 325 Mg Tablet PO 650 mg Q4H PRN Administration Headache Aspirin 81 mg 03/06/20 09:00 03/15/20 09:05 Aspirin 81 Mg Chewable Tablet PO 81 mg DAILY RENU Administration Bupropion HCl 150 mg 03/05/20 21:00 03/15/20 09:05 Bupropion Hcl Sr (12hr) 150 Mg Tab PO 150 mg Q12HR RENU Administration Colchicine 0.6 mg 03/06/20 09:00 03/15/20 09:05 Colchicine 0.6 Mg Tablet PO 0.6 mg DAILY RENU Administration Cyclobenzaprine HCl 5 mg 03/05/20 14:00 03/15/20 05:28 Cyclobenzaprine Hcl 5 Mg Tablet PO 5 mg Q8H RENU Administration Diphenoxylate HCl/Atropine 1 tablet 03/05/20 13:22 Diphenoxylate/Atropine (*Crx) 2.5 Mg Tablet PO QID PRN Diarrhea Pantoprazole Sodium 40 mg 03/05/20 21:00 03/15/20 09:06 Pantoprazole 40 Mg Tablet PO 40 mg Q12H RENU Administration Polyethylene Glycol 17 gm 03/06/20 09:00 03/15/20 09:09 Polyethylene Glycol 3350 17 Gm Powd.Pack PO Not Given DAILY [facility]ENU Pregabalin 150 mg 03/05/20 21:00 03/15/20 09:07 Pregabalin (*Crx) 75 Mg Capsule PO 150 mg Q12H RENU Administration Ranolazine 500 mg 03/05/20 21:00 03/15/20 09:06 Ranolazine 500 Mg Tab.Er.12h PO 500 mg Q12H RENU Administration Simvastatin 20 mg 03/05/20 21:00 03/14/20 20:17 Simvastatin 20 Mg Tablet PO 20 mg HS RENU Administration Warfarin Sodium 3 mg 03/13/20 17:00 03/14/20 17:40 Warfarin (*Pbkc) 3 Mg Tablet PO 3 mg DAILY@1700 RENU Administration Warfarin Sodium 4 mg 03/13/20 17:00 03/14/20 17:39 Warfarin (*Pbkc) 4 Mg Tablet PO 4 mg DAILY@1700 ERNU Administration Labs Labs: Laboratory Results - last 24 hr 03/15/20 04:30 PT 23.8 H INR 2.1 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.01 - retirement (current) use of anticoagulants Status: Acute (3) Factor 5 Leiden mutation, heterozygous: Code(s): D68.51 - Activated protein C resistance Status: Acute (4) Hypertension: Code(s): I10 - Essential (primary) hypertension Status: Acute (5) Wound dehiscence: Code(s): T81.30XA - Disruption of wound, unspecified, initial encounter Status: Acute (6) Other fracture of t11-T12 vertebra,
--- NOTE | 2020-03-17 17:16 | PM.DS ---
DS: Admitting Diagnosis Admitting Diagnosis Admitting Diagnosis: T11-T12 fracture DS: Summary Hospital Course Hospital Course: stable Time Spent with Patient Time attestation: Total time spent providing and/or coordinating discharge services: ADMISSION FUNCTION: 69 years old right-handed male admitted to the rehab floor of [facility] with etiological diagnosis of T11-T12 fracture in addition to the comorbid conditions of 1. Diabetes mellitus type 2 2. Hypertension 3. Factor 5 laden deficiency 4. History of T10-L1 PSF by Dr. Garcia on December 17, 2019 5. Mechanical fall with superficial dehisence along the midportion of the incision 6. Anemia with acute blood loss and 6. On Coumadin therapy. During the entire hospitalization he was not seen by any other vocational rehab consultant and he was involved the physical therapy on a regular basis. His anticoagulation therapy was continued. At the time of discharge his WBCs were 5.0 hemoglobin 10.9 INR 2.1 with normal electrolytes and his examination was unchanged. evaluation at the time of admission documented pt. needs Eating [Set Up Only] Oral Care supervision Toileting Hygiene [ partial assistance Shower/Bathing partial shampoo assistant Upper Body Dressing partial assistance Lower Body Dressing substantial Donning/[address] Footwear substantial Rolling Left and Right partial assistance Sit to Lying partial assistance Lying to Sitting partial assistance Sit to Stand partial assistance Bed to Chair Transfers partial shampoo assistant Toilet Transfers partial shampoo assistant Car Transfers partial shampoo assistant Walking 10' partial assistance Walking 50' with Two Turns partial assistance Walking 150' unable Curb or Step partial assisted 4 Steps partial assistance 12 Steps patient refused Picking Up Object independent [Wheelchair Mobility 50'] not applicable [Wheelchair Mobility 150'] not applicable GOALS: Eating [INDEPENDENT] Oral Care [INDEPENDENT] Toileting Hygiene [INDEPENDENT] Shower/Bathing [INDEPENDENT] Upper Body Dressing [INDEPENDENT] Lower Body Dressing [INDEPENDENT] Donning/[address] Footwear [INDEPENDENT] Rolling Left and Right [INDEPENDENT] Sit to Lying [INDEPENDENT] Lying to Sitting [INDEPENDENT] Sit to Stand [INDEPENDENT] Bed to Chair Transfers [INDEPENDENT] Toilet Transfers [INDEPENDENT] Car Transfers [INDEPENDENT] Walking 10' [INDEPENDENT] Walking 50' with Two Turns [INDEPENDENT] Walking 150' partial assistance Curb or Step [INDEPENDENT] 4 Steps [INDEPENDENT] 12 Steps [INDEPENDENT] Picking Up Object [INDEPENDENT] [Wheelchair Mobility 50'] not applicable [Wheelchair Mobility 150'] not applicable DISCHARGE PERFORMANCE: Eating [INDEPENDENT] Oral Care [INDEPENDENT] Toileting Hygiene [INDEPENDENT] Shower/Bathing [INDEPENDENT] Upper Body Dressing supervision Lower Body Dressing supervision Donning/[address] Footwear [INDEPENDENT] Rolling Left and Right [INDEPENDENT] Sit to Lying [INDEPENDENT] Lying to Sitting [INDEPENDENT] Sit to Stand [INDEPENDENT] Bed to Chair Transfers [INDEPENDENT] Toilet Transfers [INDEPENDENT] Car Transfers supervision Walking 10' [INDEPENDENT] Walking 50' with Two Turns supervision Walking 150' unable Curb or Step set up 4 Steps partial assistance 12 Steps unable Picking Up Object [INDEPENDENT] [Wheelchair Mobility 50'] not replicate [Wheelchair Mobility 150'] not applicable Patient had no fall during the entire hospitalization he was discharged to his home with Home Health instruction and his condition improved Discharge Plan Discharge Attending physician on discharge: Dean Thompson Discharging Clinician: Dean Thompson Anticipated Discharge Date/Time: 03/15/20 12:24 Patient Disposition: Home Health Service Activity: as tolerated and other - see discharge instructions Diet: regular Wound Care Instructions: keep dressing dry Discharge Instructions: Per Care Coordination: Home Health services have been arranged through [facility]
== END 2020-03-15 12:54 | disposition home health service (06) | DRG 949 ==
PROVIDERS: Admitting Provider Psychiatry & Neurology Neurology; Visit Provider Psychiatry & Neurology Neurology
DX: T81.30XD Disruption of wound, unspecified, subsequent encounter (principal); D68.51 Activated protein C resistance; D62 Acute posthemorrhagic anemia; S22.089S Unspecified fracture of T11-T12 vertebra, sequela; I10 Essential (primary) hypertension; E11.9 Type 2 diabetes mellitus without complications; Z79.01 Long term (current) use of anticoagulants; Z98.1 Arthrodesis status; W19.XXXD Unspecified fall, subsequent encounter
CPT/HCPCS: 36415; 80048; 85025; 85610; 97110; 97116; 97162; 97165; 97530; 97535; A9270